=== PATIENT | female | born 1980 | race Caucasian/White ===

== ENCOUNTER → 2022-08-03 | Outpatient (CLI) | payer BC | LOC: COL.RAD 09:18 | DX: H47.10 Unspecified papilledema (principal) ==

== ENCOUNTER → 2022-08-07 | Outpatient (CLI) | payer BC | LOC: COL.RAD 12:55 | DX: J32.3 Chronic sphenoidal sinusitis (principal); H47.10 Unspecified papilledema | CPT/HCPCS: A9575 ==

== ENCOUNTER 2024-02-08 18:29 | Emergency (ER) | payer OTHER ==
[~2024-02-08] VITALS: Ht 160 cm; Wt 86.4 kg
[2024-02-08 18:30] VITALS: TEMP 98.3
[2024-02-08] MEDS ORDERED: fentaNYL 50 MCG/ML 2 ML VIAL IV ONE ×2 (19:15→19:45)
[2024-02-08] MEDS ORDERED: Morphine 4 MG/ML VIAL IV ONE (20:15)
[2024-02-08] MEDS ORDERED: CRUTCHES MC (21:19)
[2024-02-08] MEDS ORDERED: NORCO 325 MG-51 TAB PO (21:20)
[2024-02-08] MEDS ORDERED: Home HYDROcodone/Acetaminophen 5/325 MG #4 TABS/PACK PO ONE (22:15)
[2024-02-08 22:30] VITALS: BP 119/77; PULSE 101
== END 2024-02-08 22:30 | disposition home or self-care (01) ==
LOC: COL.ER 18:29
DX: S82.832A Other fracture of upper and lower end of left fibula, initial encounter for closed fracture (principal); X50.1XXA Overexertion from prolonged static or awkward postures, initial encounter; Y93.01 Activity, walking, marching and hiking
CPT/HCPCS: J2270; J2704; J3010

== ENCOUNTER 2024-02-09 00:53 | Emergency (ER) | payer OTHER ==
[~2024-02-09] VITALS: Ht 160 cm; Wt 86.4 kg
[~2024-02-09 00:53] MED LIST: CRUTCHES MC; NORCO 325 MG-51 TAB PO
[2024-02-09 00:58] VITALS: TEMP 98.8
[2024-02-09 01:41] VITALS: BP 137/85; PULSE 104
== END 2024-02-09 01:41 | disposition home or self-care (01) ==
LOC: COL.ER 00:53
DX: S82.892A Other fracture of left lower leg, initial encounter for closed fracture (principal); X58.XXXA Exposure to other specified factors, initial encounter